=== PATIENT | male | born 1960 | race Caucasian/White ===

== ENCOUNTER 2021-12-17 11:24 | Inpatient (IN) | payer MEDICARE, OTHER ==
[~2021-12-17] VITALS: Ht 185.4 cm; Wt 126.0 kg
[~2021-12-17 11:24] MED LIST: AUGMENTIN 875-1 EACH PO
--- OUTSIDE RECORDS SUMMARY | 2021-12-17 11:26 | XMS ---
PreManage Notification: ISELA MOJICA Security Groundskeeping Yardman Events No recent Security Events currently on file CRITERIA MET - [facility] There are no care providers on record at this time. Care Guidelines exist for the following facilities: [facility] ( 08/26/2019 ) Kurt VISIT COUNT (12 MO.) [address] [facility] [place] [facility] TOTAL 2 NOTE: Visits indicate total known visits. ED/UCC VISIT TRACKING (12 MO.) 12/17/2021 11:25 [facility] Cross TYPE: Emergency COMPLAINT: - ALTERED LOC [facility] DIAGNOSES: - Weakness - Myocardial infarction type 2 - Pneumonia, unspecified organism - Acute kidney failure, unspecified - Sepsis, unspecified organism - Fall INPATIENT VISIT TRACKING (12 MO.) 06[facility]2021 13:[facility] DIAGNOSES: - Pneumonia, unspecified organism - Bladder-neck obstruction - Acute kidney failure, unspecified - Sepsis, unspecified organism - Myocardial infarction type 2 - Obstructive sleep apnea (adult) (pediatric) - Morbid (severe) obesity due to excess calories - Hypothyroidism, unspecified - Other malaise - Severe sepsis with septic shock - Type 2 diabetes mellitus without complications - Severe sepsis without septic shock [id number]
--- NOTE | 2021-12-17 16:45 | NUR ---
PT ARRIVES TO FLOOR VIA STRETCHER FROM ED. PT ON 3L 02 VIA NC TO MAINTAIN SP02 ABOVE 92%. TELE PULSE OX ON PER ORDER. CONDOM CATH APPLIED TO PREVENT SKIN BREAKDOWN, PT REPORTED TO BE INC FOR DAYS. PT DENIES PAIN OR NAUSEA AT THIS TIME. STATES HE IS TIRED. SKIN NOED TO BE DIAPHORETIC - TEMP IN ED - CBG STABLE AT 154. NO SKIN BREAKDOWN NOTED. IV SITE FLUSHES WITHOUT DIFFICULTY. FIELD START IN L HAND NOTED TO BE PULLED BY PT UPON ARRIVAL TO CA. ADMISSION ASSESSMENT COMPLETE. PT ORIENTED TO ROOM AND CALL LIGHT.
--- NOTE | 2021-12-17 18:00 | NUR ---
PT USES CALL LIGHT TO REQUEST BLANKET - PROVIDED. DINNER TRAY PROVIDED FOR PT - SHOWS SOME INTEREST IN EATING. HOME CPAP AND PERSONAL HYGIENE BELONGINGS PLACED AT BEDSIDE. PT DENIES FURTHER NEEDS. CALL LIGHT IN REACH. SP02 STABLE ON TELE.
--- NOTE | 2021-12-17 18:11 | NUR ---
ON ADMIT, NURSE BRE DID VITALS AND GOT PT SETTLED. CALL LIGHT WITHIN REACH.
--- NOTE | 2021-12-17 19:15 | NUR ---
REPORT RECEIVED FROM DAY SHIFT RN. PT LYING AWAKE IN BED. DENIES NEEDS. 3L/NC IN PLACE. SpO2 MID TO HIGH 90'S. CALL LIGHT IN REACH.
--- NOTE | 2021-12-17 19:39 | EKG ---
[facility] [address] [place], [place] [address] Signed Sinus tachycardia Otherwise normal ECG No previous ECGs available Confirmed by JOLENE SPRAGUE MD ([id number]) on 12/17/2021 7:39:05 PM Electronically Signed By: JOLENE SPRAGUE MD 12/17/21 193 PATIENT NAME: ISELA MOJICA Electrocardiogram DATE OF : 58 PHYSICIAN: JOLENE SPRAGUE MD REPORT #: [id number] REPORT IS CONFIDENTIAL AND NOT TO BE RELEASED WITHOUT AUTHORIZATION
--- NOTE | 2021-12-17 19:49 | NUR ---
CALL LIGHT ANSWERED. BY THE TIME STAFF DONNED PPE AND ENTERED ROOM PT WAS UP TO BR INDEPENDENTLY WITH OXYGEN OFF. SpO2 MID 90'S. DENIES SOB WITH ACTIVITY. PT HAD XL FORMED BM AND INCONTINENT OF URINE ON THE FLOOR. STAFF ASSIST WITH RITU CARE. FLOOR CLEANED. PT BACK TO BED WITH SBA. GAIT STEADY. EDUCATION PROVIDED ON SAFETY. PT AGREED TO WAIT FOR STAFF BEFORE LEAVING BED. BED ALARM FOR SAFETY. 3L/NC IN PLACE. PT DENIES FURTHER NEEDS. CALL LIGHT IN REACH.
--- NOTE | 2021-12-17 19:50 | NUR ---
THIS LACROSSE PLAYER HELPED PRIMARY RN EMANI. WIPED THE FLOOR WITH ABRAHAM WIPES AND DRIED. PATIENT GOT UP TO USE THE BATHROOM. PATIENT HAD BM. PATIENT IS BACK IN BED. CALL LIGHT WITHIN REACH. BED ALARM ON FOR SAFETY.
--- NOTE | 2021-12-17 22:05 | NUR ---
EVENING ASSESSMENT COMPLETE. SCHEDULED MEDS ADMIN PER EMAR. PT DENIES PAIN OR NAUSEA. PT DIAPHORETIC. SKIN CARE DONE. CLEAN LINENS AND GOWN PROVIDED. BLOOD SUGAR 217. SLIDING SCALE INSULIN ADMIN. PT DENIES SOB. RESPIRATIONS EVEN. RESPIRATIONS EVEN. LUNGS DIM THROUGHOUT. HOME CPAP SET UP WITH 2L OXYGEN. HOB ELEVATED. TELE CPOX #[address] SpO2 93%. PT DENIES QUESTIONS OR CONCNERS. CALL LIGHT IN REACH.
--- NOTE | 2021-12-17 23:16 | NUR ---
PT RESTING IN BED WITH EYES CLOSED. RESPIRATIONS EVEN. SpO2 93% WITH CPAP AND O2 IN PLACE. TELE #9. SR. HR 80'S. CALL LIGHT IN REACH. BED ALARM FOR SAFETY.
--- NOTE | 2021-12-18 00:57 | NUR ---
CALL LIGHT ANSWERED. IN TO ASSIST PT TO USE URINAL. PT INCONTINENT OF URINE ALSO. SKIN CARE DONE. CLEAN BRIEF PLACED. PT ABLE TO ASSIST WITH CARES. PT DIAPHORETIC AND SHAKY. AFEBRILE. CLEAN LINENS AND WARM BLANKET PROVIDED. CPAP WITH 2L OXYGEN IN PLACE. NO FURTHER NEEDS. BED ALARM IN PLACE. CALL LIGHT IN REACH.
--- NOTE | 2021-12-18 02:31 | NUR ---
PT RESTING IN BED WITH EYES CLOSED. RESPIRATIONS EVEN. HR 80'S. SpO2 94% WITH CPAP AND 2L IN PLACE. BED ALARM FOR SAFETY. CALL LIGHT IN REACH.
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
--- NOTE | 2021-12-18 05:45 | NUR ---
CALL LIGHT ANSWERED. PT OFF CPAP. 3L/NC IN PLACE. SpO2 HIGH 90'S. HR 80'S. VS AND I&O COMPLETE. NO FURTHER NEEDS. CALL LIGHT IN REACH.
--- NOTE | 2021-12-18 07:00 | NUR ---
CALL LIGHT ANSWERED. PT UP TO BR TO VOID AND HAVE XL SOFT BM WITH SBA. GAIT STEADY. PT NOT SHAKEY OR DIAPHORETIC AT THIS TIME. BACK TO BED. OXYGEN TITRATED TO 2L/NC. SpO2 HIGH 90'S. NO FURTHER NEEDS. CALL LIGHT IN REACH. BED ALARM FOR SAFETY.
--- NOTE | 2021-12-18 07:15 | NUR ---
assumed care from Margo PAYAN bedside report - call light in reach -
[2021-12-18] MEDS ORDERED: BUPROPION XL300 MG PO (07:37)
[2021-12-18] MEDS ORDERED: LEVOTHYROXINE50 MCG PO (07:38)
[2021-12-18] MEDS ORDERED: METFORMIN HCL1000 MG PO (07:40)
[2021-12-18] MEDS ORDERED: QUETIAPINE FUM400 MG PO (07:41)
[2021-12-18] MEDS ORDERED: QUETIAPINE FUM300 M1 PO (07:42)
[2021-12-18] MEDS ORDERED: MIRTAZAPINE30 MG PO (07:42)
[2021-12-18] MEDS ORDERED: LANTUS SOL100 UNIT/1 SUB-Q (07:43)
[2021-12-18] MEDS ORDERED: PIOGLITAZONE HC30 MG PO (07:43)
[2021-12-18] MEDS ORDERED: TAMSULOSIN HCL0.4 MG PO (07:44)
[2021-12-18] MEDS ORDERED: GABAPENTIN400 MG PO (07:45)
[2021-12-18] MEDS ORDERED: COLCRYS0.6 MG PO ×2 (07:45→13:38)
[2021-12-18] MEDS ORDERED: ZIPRASIDONE HCL80 MG PO (07:47)
--- NOTE | 2021-12-18 07:47 | NUR ---
discussed pt with dr. gardner - bs = 139 tele 9 hr 83
[2021-12-18] MEDS ORDERED: FINASTERIDE5 MG PO (07:49)
[2021-12-18] MEDS ORDERED: SIMVASTATIN10 MG PO (07:49)
[2021-12-18] MEDS ORDERED: LISINOPRIL20 MG PO (07:50)
--- NOTE | 2021-12-18 08:50 | NUR ---
Dr. Gaytan here
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
--- NOTE | 2021-12-18 12:21 | NUR ---
pt talkative, reports he feels like he is back at baseline - he said he feels like he could walk around at home - he reports he has ox concentrator at home for cpap at night with 2l - he states he eats meals down stairs - and had trouble with incontenence at home due to being tired. he reports he feels he can manage the stairs at home with his family.
--- NOTE | 2021-12-18 12:35 | NUR ---
pt amb to br x2 with rn standby assist, pt had + flatus and bm, then back to sink for am care and stood with good tollerance to brush teeth.
[2021-12-18] MEDS ORDERED: ZOLPIDEM TARTRA10 MG PO (13:39)
--- NOTE | 2021-12-18 13:59 | NUR ---
pt to bathroom, denies other needs o2 0.5 lnc - will call rn to return to bed.
--- NOTE | 2021-12-18 16:36 | NUR ---
pt cont. to be 96% on room air, hr 70.
--- NOTE | 2021-12-18 17:12 | NUR ---
pt eval pt and deemed him independent. RA 95% pt sl for shower with shower chair and case finisher assist - bs =199 insulin given with dinner
--- NOTE | 2021-12-18 17:18 | NUR ---
CALLED PATIENT SISTER RERE TO COMPLETE DISCHARGE ASSESSMENT. RERE CONFIRMED THAT PATIENT HAS LIVED AT HOME WITH HER SINCE [facility]. PATIENT DOES NOT REQUIRE ANY AMBULATORY ASSISTIVE DEVICES AT THIS TIME. RERE STATES SHE IS CONCERNED THAT THEY LIVE IN A 2 STORY HOME WITH STEEP STAIR. RERE STATES THE STAIR HAVE HAND RAILS, BUT IS CONCERNED THE PATIENT WILL FALL AND SHE WILL BE UNABLE TO ASSIST HIM. PATIENT DOES REQUIRE O2 AT NIGHT AND RECVS O2 FROM [employer]. PCP DR. HERNANDEZ, PATIENT HAS AN APPT 12/25/21. RERE STATES SHE WILL CONTACT THE PCPS OFFICE TO DETERMINE IF FOLLOW UP IS POSSSIBLE ON 12/25 IN LIGHT OF THE RECENT COVID DIAGNOSIS. RERE STATES PATIENT DOES NOT RECV ANY STATE PAID CAREGIVING ASSISTANCE. I SUGGESTED THAT PT EVALUATE PLACEMENT FOR SAFEFTY WITH STAIR. RERE IS AGREEABLE TO THAT PLAN AND STATES THE PATIENT CAN RETURN HOME IF CLEARED BY PT. DR. NASH NOTIFIED, PT ORDER PLACED. KADEN PAYAN NOTIFIED.
[2021-12-18] MEDS ORDERED: L-METHYLFOLATE15 M1 PO (17:36)
[2021-12-18] MEDS ORDERED: LORATADINE10 MG PO (17:37)
[2021-12-18] MEDS ORDERED: LOW DOSE ASPIRI81 MG PO (17:37)
[2021-12-18] MEDS ORDERED: B-123000 MCG SL (17:38)
[2021-12-18] MEDS ORDERED: MULTI VITAMIN1 EACH PO (17:39)
[2021-12-18] MEDS ORDERED: STOOL SOFTENER100 MG PO (17:39)
[2021-12-18] MEDS ORDERED: VITAMIN D325 MC4 PO (17:39)
[2021-12-18] MEDS ORDERED: IBU600 MG PO (17:40)
--- NOTE | 2021-12-18 17:41 | NUR ---
Medications reconciled. List confirmed accurate per interview with patient's sister, Antonia
--- NOTE | 2021-12-18 20:02 | NUR ---
REPORT RECEIVED FROM DAY SHIFT RN. PT LYING IN BED ALERT AND ORIENTED. DENIES NEEDS AT THIS TIME. CALL LIGHT IN REACH. WHITE BOARD UPDATED.
--- NOTE | 2021-12-18 20:48 | NUR ---
EVENING ASSESSMENT COMPLETE. SCHEDULED MEDS ADMIN PER EMAR. PT DENIES PAIN OR NAUSEA. DENIES SOB. SpO2 98% ON RA. OCCASIONAL DRY COUGH NOTED. ASSISTED WITH HOME CPAP WITH 2L OXYGEN. VS AND I&O COMPLETE. PT DENIES QUESTIONS OR CONCERNS. CALL LIGHT IN REACH.
--- NOTE | 2021-12-18 23:33 | NUR ---
PT RESTING IN BED WITH EYES CLOSED. HOME CPAP IN PLACE. RESPIRATIONS EVEN. CALL LIGHT IN REACH.
--- NOTE | 2021-12-19 01:59 | NUR ---
PT RESTING IN BED WITH EYES CLOSED. RESPIRATIONS EVEN. CPAP WITH 2L OXYGEN IN PLACE. CALL LIGHT IN REACH.
--- NOTE | 2021-12-19 03:37 | NUR ---
PT RESTING WITH CPAP AND 2L OXYGEN IN PLACE. RESPIRATIONS EVEN. CALL LIGHT IN REACH.
--- NOTE | 2021-12-19 04:37 | NUR ---
PT AWAKE IN BED. HAD BEEN UP TO BR TO VOID INDEPENDENTLY WITHOUT ISSUE. SpO2 100% ON RA. HR 70'S. PT DIAPHORETIC. BLOOD SUGAR 120. DRY LINENS AND WARM BLANKETS PROVIDED. NO FURTHER NEEDS AT THIS TIME. CALL LIGHT IN REACH.
--- NOTE | 2021-12-19 06:38 | NUR ---
PT AWAKE IN BED. VS AND I&O COMPLETE. SCHEDULED MEDS ADMIN PER EMAR. SUGAR FREE JELLO AND CRACKERS GIVEN. NO FURTHER NEEDS.
--- NOTE | 2021-12-19 07:25 | NUR ---
REPORT FROM ORA JOAQUIN.
--- NOTE | 2021-12-19 07:51 | NUR ---
MORNING ASSESSMENT DONE. PATIENT DENIES PAIN OR NAUSEA, IS ON ROOM AIR AT 98% AND PATIENT ENDORSES THAT HE FEELS BETTER. BLOOD GLUCOSE IS 135, NO SS COVERAGE REQUIRED. MORNING MEDICATIONS GIVEN, NO OTHER NEEDS AT THIS TIME.
--- NOTE | 2021-12-19 09:27 | NUR ---
PATIENT IS IN THE SHOWER.
--- NOTE | 2021-12-19 10:47 | NUR ---
PATIENT IS UP IN ROOM, INDICATED THAT HE WAS DOING HIS DAILY EXERCISES.
[2021-12-19] MEDS ORDERED: DEXAMETHASONE6 MG PO (11:48)
--- NOTE | 2021-12-19 11:55 | NUR ---
PATIENT GIVEN AFTERNOON MEDICATIONS. WE WILL NEED TO CALL HIS SISTER FOR CLOTHES AND A RIDE HOME. DISCHARGE PAPERS PENDING. LEFT ARM IV REMOVED WITH CATHETER INTACT. 3 UNITS OF INSULIN GIVEN FOR BG OF 210.
--- NOTE | 2021-12-19 13:37 | NUR ---
PATIENT IS AWAITING SISTER TO TRANSPORT HIM HOME.
== END 2021-12-19 15:00 | disposition home or self-care (01) | DRG 177 ==
LOC: ED 11:24 → MS 16:23
PROVIDERS: ADMIT Internal Medicine; ATTEND Internal Medicine
PROC: XW033H6 Introduction of Other New Technology Monoclonal Antibody into Peripheral Vein, Percutaneous Approach, New Technology Group 6 (ICD-10-PCS; principal; 2021-12-17)
PROC: 3E0333Z Introduction of Anti-inflammatory into Peripheral Vein, Percutaneous Approach (ICD-10-PCS; 2021-12-17)
PROC: 8E0ZXY6 Isolation (ICD-10-PCS; 2021-12-17)
DX: U07.1 COVID-19 (principal); G93.41 Metabolic encephalopathy; J12.82 Pneumonia due to coronavirus disease 2019; J96.01 Acute respiratory failure with hypoxia; I10 Essential (primary) hypertension; N40.0 Benign prostatic hyperplasia without lower urinary tract symptoms; E11.9 Type 2 diabetes mellitus without complications; Z87.820 Personal history of traumatic brain injury; Z23 Encounter for immunization; R32 Unspecified urinary incontinence; F20.9 Schizophrenia, unspecified; E03.9 Hypothyroidism, unspecified; E78.5 Hyperlipidemia, unspecified; G89.4 Chronic pain syndrome; F39 Unspecified mood [affective] disorder; Z87.891 Personal history of nicotine dependence; Z79.899 Other long term (current) drug therapy
CPT/HCPCS: 36415; 71045; 80048; 80053; 81001; 82140; 83605; 85025; 87502; 93005; 93010; 97162; A9270; C9803; J1100; J1650; J1815; J7030; J8540; U0003

== ENCOUNTER 2023-09-11 06:00 | Day surgery (SDC) | payer MEDICARE, OTHER ==
[~2023-09-11] VITALS: Ht 185.4 cm; Wt 266.5 kg
[~2023-09-11 06:00] MED LIST changes: +ACETAMINOPHEN325 M1 PO; +ALLOPURINOL300 MG PO; +B-123000 MCG SL; +BUPROPION XL300 MG PO; +CEFDINIR300 MG PO; +COLCRYS0.6 MG PO; +DEXAMETHASONE6 MG PO; +DOCUSATE SODIU100 M1 PO; +FINASTERIDE5 MG PO; +GABAPENTIN400 MG PO; +IBU600 MG PO; +L-METHYLFOLATE15 M1 PO; +LANTUS SOL100 UNIT/1 SUB-Q; +LEVOTHYROXINE50 MCG PO; +LIPITOR20 MG PO; +LISINOPRIL20 MG PO; +LORATADINE10 MG PO; +LOW DOSE ASPIRI81 MG PO; +METFORMIN HCL1000 MG PO; +MIDAZOLAM HCL 5 MG/5 ML VIAL IV PRN; +MIRTAZAPINE30 MG PO; +MULTI VITAMIN1 EACH PO; +PIOGLITAZONE HC30 MG PO; +QUETIAPINE FUM300 M1 PO; +QUETIAPINE FUM400 MG PO; +SEROQUEL XR300 MG PO; +SIMVASTATIN10 MG PO; +STOOL SOFTENER100 MG PO; +TAMSULOSIN HCL0.4 MG PO; +TRULICITY4.5 MG/0.5 SUB-Q; +VITAMIN D325 MC4 PO; +ZIPRASIDONE HCL40 MG PO; +ZIPRASIDONE HCL80 MG PO; +ZOLPIDEM TARTRA10 MG PO; +fentaNYL citrate 100 MCG/2 ML VIAL IV PRN
[2023-09-11] MEDS ORDERED: propofoL 200 MG/20 ML VIAL ONE (06:18)
[2023-09-11 06:31] VITALS: BP 132/71
[2023-09-11] MEDS ORDERED: LACTATED RINGER'S 1,000 ML IV SCH (07:00)
[2023-09-11] MEDS ORDERED: IBLOOD GLUCOSE TEST STRIP 1 EA TEST VI PRN (07:00)
[2023-09-11] MEDS ORDERED: LIDOCAINE HCL 1% 5 ML SDV INJ ONE (07:00)
--- NOTE | 2023-09-11 07:31 | NUR ---
PT JUST LEAVING FOR PROCEDURE ROOM. DID NOT DELAY TREATEMENT; PROVIDED SILENT PRAYER.
[2023-09-11] MEDS ORDERED: LACTATED RINGER'S 1,000 ML IV ONE (08:00)
--- NOTE | 2023-09-11 08:23 | NUR ---
09/11/23 0823 Blanka Delgado 0816-PATIENT ARRIVED TO PACU ON 10L MASK NONAROUSABLE ORAL AIRWAY AND NASAL AIRWAY IN MOUTH. 10L MASK RR EVEN PATIENT LAYING LEFT LATERAL. SR WITH BBB RHYTHM IVF INFUSING. ABDOMEN ROUND PASSING GAS. 0823-GLUCOSE 136. PATIENT REMAINS NONAROUSABLE AIRWAYS IN PLACE. 98% 10L MASK
[2023-09-11 09:01] VITALS: BP 143/87
--- NOTE | 2023-09-11 10:06 | OR ---
[facility] [address] [place], [place] [address] Signed DATE OF OPERATION: 09/11/2023 SURGEON: Lawson Medina MD PREOPERATIVE DIAGNOSIS: Personal history of colonic polyps. POSTOPERATIVE DIAGNOSES: 1. Moderate internal hemorrhoids. 2. 5 mm polyps x2 at 28 cm in sigmoid colon. 3. 5 mm polyp at 90 cm in distal right colon. 4. 4 mm polyp at 85 cm in hepatic flexure. 5. 5 mm polyp at proximal transverse colon. 6. 4 mm polyp at 30 cm in sigmoid colon. PROCEDURE: Colonoscopy with hot biopsy. ESTIMATED BLOOD LOSS: None. INDICATIONS: Amilcar is a 63-year-old obese diabetic gentleman with significant schizophrenia and developmental delay and a traumatic brain injury, asked to see me for a followup colonoscopy. He lived in [place], [place] for quite a few years. He went to their clinic under the care of Dr. Flavio Aden. He and his sister describe at least two prior colonoscopies. He is pretty certain polyps had been removed. He was told to follow up in three years. Dr. Aden has moved out of our area. Amilcar came to live with his sister here in [place], [place]. He has re-established with a new primary care provider. He therefore was asked to see me with respect to the above. He said he has no lower GI complaints. There is no family history of colon cancer or polyps. His sister happens to be a disabled registered nurse. In the office, I gave Amilcar a pamphlet on colonoscopy. We reviewed the nature of the test. There is risk including, but not limited to gas bloating, crampy abdominal pain, bleeding, perforation requiring surgery, and missed diagnosis. We also reviewed the written instructions for the bowel prep line by line. It turned out we had to give Amilcar a double bowel prep and even then he had quite a bit of particulate liquid stool matter today. In the future he might take a prep and a half or even a bottle of mag citrate before he starts a standard full prep. In addition because of his rather significant size with a very round heavy face, neck, chest and abdomen along with his complex medical issues, we asked for Electronically Signed By: LAWSON MEDINA MD 09/11/23 1006 PATIENT NAME: ISELA MOJICA OPERATIVE REPORT DATE OF : 58 REPORT #: [id number] PHYSICIAN: LAWSON MEDINA MD PCP: MIKEY OLMSTEAD MD REPORT IS CONFIDENTIAL AND NOT TO BE RELEASED WITHOUT AUTHORIZATION [facility] [address] [place], [place] [address] Signed monitored anesthesia care with propofol infusion. That proved to be a dominguez decision. He and his sister had expressed understanding and wished to proceed. PROCEDURE IN DETAIL: Amilcar was taken into our endoscopy suite and placed in the left lateral decubitus position. He was given monitored anesthesia care with propofol infusion per our nurse performing arts technicians. An oral airway was required because of his rather large tongue. A digital rectal exam was performed. He had good sphincter tone. No external hemorrhoids. No masses. He has some induration to the prostate gland. The adult colonoscope was introduced and advanced under direct visualization of the camera. He has a very large protuberant abdomen. Even with two nurses pushing, we could not get the scope around the hepatic flexure to any significant degree. We finally put him supine and again we could not get the scope down into the cecum. We went back into the left lateral decubitus position and finally the scope went right down almost to the base of the cecum. We could see the appendiceal orifice and ileocecal valve. The scope was slowly withdrawn. We took multiple pictures throughout for photodocumentation. Unfortunately, his prep was still not the best with quite a bit of liquid particulate stool matter. I think some additional prep or maybe a bottle of mag citrate before he starts the prep would be helpful. The above-mentioned polyps were removed with the help of hot biopsy forceps. We did not see any diverticula. He was starting to wake up and cough and I could not retroflex the scope in his rectum. The scope was then slowly withdrawn and we could see that he has moderate internal hemorrhoid columns. After this, the gas was suctioned out and the colonoscope removed. Amilcar tolerated the procedure quite well. RECOMMENDATIONS: I will see Amilcar back in my office in 7 to 14 days to review his results. Mainly because of his prep, he should probably come back in three years for repeat colonoscopy with at least a full one gallon of polyethylene glycol along with Dulcolax tablets. He might add some magnesium citrate before he starts. He will always need monitored anesthesia care. MD HAYDEE Alejandre/BASILIOL /[id number] Electronically Signed By: LAWSON MEDINA MD 09/11/23 1006 PATIENT NAME: ISELA MOJICA OPERATIVE REPORT DATE OF : 58 REPORT #: [id number] PHYSICIAN: LAWSON MEDINA MD PCP: MIKEY OLMSTEAD MD REPORT IS CONFIDENTIAL AND NOT TO BE RELEASED WITHOUT AUTHORIZATION [facility] [address] [place], [place] [address] Signed cc: MD Lawson Piedra MD Copies: LAWSON MEDINA MD ~ Electronically Signed By: LAWSON MEDINA MD 09/11/23 1006 PATIENT NAME: ISELA MOJICA OPERATIVE REPORT DATE OF : 58 REPORT #: [id number] PHYSICIAN: LAWSON MEDINA MD PCP: MIKEY OLMSTEAD MD REPORT IS CONFIDENTIAL AND NOT TO BE RELEASED WITHOUT AUTHORIZATION
--- NOTE | 2023-09-13 10:48 | PATH ---
[facility] [facility] [address] [facility] [place] [place] [address] Signed SPECIMEN(S): A SIGMOID POLYP 28 CM SPECIMEN(S): B ASCENDING RIGHT COLON POLYP 90 CM SPECIMEN(S): C HEPATIC FLEXURE COLON POLYP 85 CM SPECIMEN(S): D TRANSVERSE COLON POLYP SPECIMEN(S): E SIGMOID POLYP SPECIMEN SOURCE: A. SIGMOID POLYP 28 CM B. ASCENDING RIGHT COLON POLYP 90 CM C. HEPATIC FLEXURE COLON POLYP 85 CM D. TRANSVERSE COLON POLYP E. SIGMOID POLYP CLINICAL HISTORY: History of edematous polyp of colon FINAL PATHOLOGIC DIAGNOSIS: A. Colon, sigmoid at 28 cm, polypectomy: - Hyperplastic polyp B. Colon, ascending at 90 cm, polypectomy: - Tubular adenoma C. Colon, hepatic flexure at 85 cm, polypectomy: - Tubular adenoma D. Colon, transverse, polypectomy: - Tubular adenoma E. Colon, sigmoid, polypectomy: - Hyperplastic polyp BRP MICROSCOPIC EXAMINATION: Histologic sections of all submitted blocks are examined by light microscopy. These findings, together with the gross examination, support the pathologic diagnosis. GROSS DESCRIPTION: A. The specimen, labeled and designated "Fine, sigmoid polyp at 28 cm," is received in formalin and consists of four zavala soft tissue fragments, ranging from 0.3-0.4 cm. Entirely submitted in (A1). B. The specimen, labeled and designated "Fine, ascending/right colon polyp at 90 cm," is received in formalin and consists of one zavala soft tissue fragment, 0.2 cm. Entirely submitted in (B1). PATIENT NAME: ISELA MOJICA PATHOLOGY DATE OF : 58 REPORT #: [id number] PHYSICIAN: LORENA JEFFREY PCP: MIKEY OLMSTEAD MD REPORT IS CONFIDENTIAL AND NOT TO BE RELEASED WITHOUT AUTHORIZATION [facility] [address] [place], [place] [address] Signed C. The specimen, labeled and designated "Fine, hepatic flexure colon polyp at 85 cm," is received in formalin and consists of two zavala soft tissue fragments, ranging from 0.2-0.3 cm. Entirely submitted in (C1). D. The specimen, labeled and designated "Fine, transverse colon polyp," is received in formalin and consists of one zavala soft tissue fragment, 0.3 cm. Entirely submitted in (D1). E. The specimen, labeled and designated "Fine, sigmoid polyp," is received in formalin and consists of one zavala soft tissue fragment, 0.2 cm. Entirely submitted in (E1). VB (under the direct supervision of a pathologist) The Gross Description was prepared using a voice recognition system. The report was reviewed for accuracy; however, sound-alike word errors, addition and/or deletions may occur. If there is any question about this report, please contact Client Services. ADDITIONAL NOTES: Immunohistochemical and/or in situ hybridization studies if performed in this case included appropriate positive controls that reacted as expected. This test was developed and its performance characteristics determined by [facility]. It has not been cleared or approved by the U.S. Food and Drug Administration. The FDA has determined that such clearance or approval is not necessary. This test is used for clinical purposes. It should not be regarded as investigational or for research. [facility] is certified under the Clinical Laboratory Improvement Amendments of 1988 (CLIA) as qualified to perform high complexity clinical laboratory testing. PERFORMING LABORATORY: Technical component was performed by [facility], [address] [place] [id number] (CLIA# [id number]). Professional interpretation was performed by [facility] - [facility] [place], [address] [place] [id number] (CLIA#: [id number]). Diagnostician: Viet Moreira MD Pathologist Electronically Signed 09/13/2023 Copies: PATIENT NAME: ISELA MOJICA PATHOLOGY DATE OF : 58 REPORT #: [id number] PHYSICIAN: [facility] PCP: MIKEY OLMSTEAD MD REPORT IS CONFIDENTIAL AND NOT TO BE RELEASED WITHOUT AUTHORIZATION [address] [address] Signed ~ PATIENT NAME: ISELA MOJICA PATHOLOGY DATE OF : 58 REPORT #: [id number] PHYSICIAN: [facility] PCP: MIKEY OLMSTEAD MD REPORT IS CONFIDENTIAL AND NOT TO BE RELEASED WITHOUT AUTHORIZATION
== END 2023-09-11 09:15 | disposition home or self-care (01) ==
LOC: DS 06:00
PROVIDERS: ATTEND Colon & Rectal Surgery
PROC: 0DBL8ZX Excision of Transverse Colon, Via Natural or Artificial Opening Endoscopic, Diagnostic (ICD-10-PCS; 2023-09-11)
PROC: 0DBN8ZX Excision of Sigmoid Colon, Via Natural or Artificial Opening Endoscopic, Diagnostic (ICD-10-PCS; 2023-09-11)
PROC: 0DBF8ZX Excision of Right Large Intestine, Via Natural or Artificial Opening Endoscopic, Diagnostic (ICD-10-PCS; principal; 2023-09-11 07:30)
DX: D12.2 Benign neoplasm of ascending colon (principal); D12.3 Benign neoplasm of transverse colon; K64.8 Other hemorrhoids; F20.9 Schizophrenia, unspecified; I10 Essential (primary) hypertension; E11.42 Type 2 diabetes mellitus with diabetic polyneuropathy; F17.220 Nicotine dependence, chewing tobacco, uncomplicated; E03.9 Hypothyroidism, unspecified; E78.5 Hyperlipidemia, unspecified; G47.33 Obstructive sleep apnea (adult) (pediatric); N40.1 Benign prostatic hyperplasia with lower urinary tract symptoms; N13.8 Other obstructive and reflux uropathy; E66.9 Obesity, unspecified; Z68.33 Body mass index [BMI] 33.0-33.9, adult; Z79.84 Long term (current) use of oral hypoglycemic drugs; Z79.82 Long term (current) use of aspirin; Z79.899 Other long term (current) drug therapy; Z79.4 Long term (current) use of insulin; Z79.890 Hormone replacement therapy
CPT/HCPCS: 00811; J2704; J7121

== ENCOUNTER 2024-08-11 15:02 | Emergency (ER) | payer MEDICARE, OTHER ==
[~2024-08-11] VITALS: Ht 185.4 cm; Wt 125.0 kg
[~2024-08-11 15:02] MED LIST changes: -MIDAZOLAM HCL 5 MG/5 ML VIAL IV PRN; -fentaNYL citrate 100 MCG/2 ML VIAL IV PRN
[2024-08-11 15:37] LABS: BASOPHILS 0.4 % (0-2); EOSINOPHILS 1.8 % (0-6); HEMATOCRIT 40.4 % (35.0-50.0); HEMOGLOBIN 13.7 g/dL (12.0-18.0); LYMPHOCYTES 17.7 % (24-44); MCH 29.1 (27-36); MCV 85.7 fl (81-99); MONOCYTES 10.6 % (0-12); NEUTROPHILS 69.5 % (39-80); PLATELET COUNT 217 K/uL (140-440); RBC 4.72 M/ul (4.3-5.7); RDW 14.6 (10.5-15.0)
[2024-08-11 15:54] LABS: ALBUMIN 3.7 g/dL (3.4-5.0); ALBUMIN/GLOBULIN RATIO 1.03 (1.1-2.4); ANION GAP 13.8 (7-21); BILIRUBIN, TOTAL 0.4 mg/dL (0.2-1.0); BUN/CREATININE RATIO 24.39 (6.0-28.6); CREATININE, SERUM 0.82 mg/dL (0.70-1.30); POTASSIUM 3.8 mmol/L (3.5-5.1); PROTEIN, TOTAL 7.3 g/dL (6.4-8.2)
[2024-08-11 17:25] VITALS: BP 157/94
== END 2024-08-11 17:25 | disposition home or self-care (01) ==
LOC: ED 15:02
PROVIDERS: Emergency Medicine
DX: R53.1 Weakness (principal); I10 Essential (primary) hypertension; E11.9 Type 2 diabetes mellitus without complications; Z87.891 Personal history of nicotine dependence; Z79.1 Long term (current) use of non-steroidal anti-inflammatories (NSAID); Z79.84 Long term (current) use of oral hypoglycemic drugs; Z79.899 Other long term (current) drug therapy; Z79.82 Long term (current) use of aspirin
CPT/HCPCS: 36415; 71045; 80053; 85025; 99284-25